=== PATIENT | male | born 1985 | race Caucasian/White ===

== ENCOUNTER 2024-08-25 02:30 | Inpatient (IN) | payer OTHER, SELFPAY ==
[2024-08-24 18:22] VITALS: BMI 31.5
[2024-08-24 18:28] VITALS: BP 152/102
--- NOTE | 2024-08-24 18:29 | ED.GENMED ---
ED Provider Triage
<Natan London PA-C - Last Filed: 08/25/24 15:56>
-
Patient seen by provider in Triage?: Seen in Triage
Attestation: A medical screening examination has been initiated by a qualified medical provider. Based on the assessment performed at this time, it has been determined that an emergent medical condition may exist and the patient has been informed
that further medical evaluation and possible additional diagnostic testing may be needed.
HPI: 39-year-old male presenting to the emergency department for evaluation of right knee pain and swelling that started after bumping his knee onto a desk. Patient with history of sepsis secondary to infection in the spine a few years
ago. Noticed increased pain, swelling and erythema today. Also had a low-grade fever. Patient concern for possible recurring sepsis. States he is still able to range of motion the knee without much difficulty. No known sick contacts. Labs
including inflammatory markers, COVID and flu testing ordered. X-ray of the right knee ordered.
GENERAL: Alert , in no apparent distress
EYE: No visual abnormalities.
NECK: Trachea midline
ENT: No visible abnormalities.
LUNGS: No acute respiratory distress
NEUROLOGICAL: Alert and oriented
SKIN: Skin intact. No visible changes.
MUSCULOSKELETAL: Moving extremities normally
PSYCH: Normal and appropriate interaction.
This is a medical evaluation conducted in person to initiate diagnostic evaluation and provide initial therapeutics. Please see further documentation by the treating clinician.
History of Present Illness
<Natan London PA-C - Last Filed: 08/25/24 15:56>
General
Chief Complaint: Musculo-Skeletal Complaint
Time Seen by Provider: 08/25/24 00:01
Past History
<Natan London PA-C - Last Filed: 08/25/24 15:56>
Past History
ED Past Medical History: Other (septic facet - MSSA- PIC line inserted for antibiotic therapy. Developed DVT at PICC line and line was removed. CUrrently on Eliquis therapy.)
ED Past Surgical History: Appendectomy
Social History
Tobacco: Non-smoker
Alcohol: Occasional
Drug: None
Personal:
Employment: Employed
Family History
Family History: Other (Noncontributory)
<Eliseo Mccormick DO - Last Filed: 08/25/24 00:24>
Past History
ED Past Medical History: Other (septic facet - MSSA- PIC line inserted for antibiotic therapy. )
Social History
Living: with family
Review of Systems
<Eliseo Mccormick DO - Last Filed: 08/25/24 00:24>
Review of Systems
All Other Systems: Not applicable
Constitutional: Reports fever, fatigue and chills
Musculoskeletal: Reports joint pain and edema
Phy Exam
<Eliseo Mccormick DO - Last Filed: 08/25/24 00:24>
Physical Exam
Physical Exam:
Physical Exam
General: 39 male warm to touch
Neck: No jaundice
Heart: No murmur
Lungs: no acute respiratory distress. clear bilaterally
Abdomen: Not
Neuro: alert and oriented. no focal neurological deficits
Skin: no rash
Psychiatric: well kept. interactive and cooperative
Extremities: Swelling over the right prepatellar bursa with warmth good range of motion of the knee
Course
<Natan London PA-C - Last Filed: 08/25/24 15:56>
Orders/Labs/Results
Orders:
Orders
08/24/24 18:27
CR Knee- Right 4 Or More View* Urgent
Comment:
Reason For Exam: injury. fever
08/24/24 18:41
Basic Metabolic Panel Urgent
COVID-19 Antigen Urgent
Source: Nasal Swab
CRP [C-Reactive Protein] Urgent
Complete Blood Count/With Diff Urgent
ESR [Erythrocyte Sed Rate] Urgent
Lactic Acid Q4H
Comment: CANCEL 2nd LACTIC ACID IF 1st LACTIC ACID IS LESS THAN 2
Lyme Progressive Urgent
Influenza A+B Rapid Molecular Urgent
AKIN Source: Nasal Swab
Specimen Description:
08/25/24 00:18
Body Fluid Cell Count Urgent
What is the Body Fluid: joint
Comment: with DIFF
Body Fluid Crystals Urgent
What is the Body Fluid: joint
Body Fluid Glucose Urgent
Fluid Source: Other
Fluid Culture with Gram Stain Urgent
AKIN Source: Joint Fluid
Specimen Description:
Gram Stain Stat
AKIN Source: Joint
Specimen Description:
08/25/24 00:24
CeFAZolin 2 GRAM [Ancef] 2 grams in 10 ml IV NOW
08/25/24 00:56
Blood Culture Q30M
AKIN Source: Blood/Venous
Specimen Description:
08/25/24 00:57
Blood Culture Q30M
AKIN Source: Blood/Venous
Specimen Description:
08/25/24 01:32
Ketorolac [Toradol] 30 mg IV NOW STA
Ondansetron Injectable [Zofran] 4 mg IV NOW STA
08/25/24 02:03
Admit/Transfer Patient As Directed
Co-Sign Provider:
Level of Care: Inpatient admission
Assign to:: Medical/Surgical
Physician / Group: Hussein
Diagnosis: Septic Bursitis - R Knee
Reason for Hospitalization: Septic Bursitis - R Knee
Expected length of stay greater than two midnights?: Yes
ELOS- Estimated Length of Stay in days: 2
I certify the patient meets the requirements for IP care: Yes
PRN Pain Medication Management As Directed
May give lesser potent ordered pain med per pt: Yes
preference::
Protocol:: Medication orders for pain may be administered in a
manner that supports deferring to patient preference
when the pt is:
- Requesting an ordered lesser potent pain medication.
Least to most potent pain medications are defined
as: acetaminophen < NSAID < tramadol < opioids
(morphine, oxycodone, hydromorphone).
- Requesting a lesser dose of the same medication IF
ORDERED.
- Requesting a less intrusive route of administration
if both routes are prescribed by the provider (PO <
IV).
08/25/24 02:04
Code Status As Directed
Resuscitation Status: Full Code
08/25/24 03:19
Acetaminophen [Tylenol] 650 mg PO Q4HPRN PRN
HYDROmorphone [Dilaudid] 0.5 mg IV Q4HPRN PRN
Ketorolac [Toradol] 15 mg IV Q6HPRN PRN
Lactated Ringers [Lr] 1,000 ml IV 125 mls/hr
08/25/24 03:19
ORTHOPEDIC CONSULT Routine
Consulting Provider: Caden Friedman
Was physician already notified: Yes
Reason for consult: Septic Bursitis - R Knee
Activity As Directed
Activity Level: Ambulate
I/O [Intake/ Output] As Directed
Frequency: Per unit guidelines
Vital Signs As Directed
Frequency: Per unit guidelines
DX Deep Vein Thrombosis Video Routine
08/25/24 Breakfast
Regular
At Your Request: Full Participation
Does patient need a safe tray?: No
08/25/24 06:11
Basic Metabolic Panel IN AM
Complete Blood Count/No Diff IN AM
08/25/24 08:00
CeFAZolin 2 GRAM [Ancef] 2 grams in 10 ml IV Q8H
08/25/24 18:00
Enoxaparin Sodium [Lovenox] 40 mg SC QPM
Abnormal Lab Results
08/24/24
18:41
RBC 4.48 L 10^6/uL
(4.70-6.10)
MCH 32.1 H pg
(27.0-31.0)
Absolute Monos (auto) 0.8 H 10^3/uL
(0.1-0.6)
Monocytes % 12.0 H %
(1.7-9.3)
ESR 31 H mm/hour
(0-20)
Sodium 133 L mmol/L
(135-145)
Glucose 144 H mg/dl
(70-99)
C-Reactive Protein 133.20 H mg/L
(0.0-10.00)
08/24/24 18:41
08/24/24 18:41
Vital Signs
Initial and Last Documented VS:
Initial Vital Signs
Temp Pulse Resp BP Pulse Ox
99.9 F 106 20 152/102 96
08/24/24 18:28 08/24/24 18:28 08/24/24 18:28 08/24/24 18:28 08/24/24 18:28
Last Documented Vital Signs
Temp Pulse Resp BP Pulse Ox
97.8 F 70 16 142/81 97
08/25/24 15:45 08/25/24 15:45 08/25/24 15:45 08/25/24 15:45 08/25/24 15:45
<Eliseo Mccormick, DO - Last Filed: 08/25/24 00:24>
Orders/Labs/Results
Orders:
Orders
08/24/24 18:27
CR Knee- Right 4 Or More View* Urgent
Comment:
Reason For Exam: injury. fever
08/24/24 18:41
Basic Metabolic Panel Urgent
COVID-19 Antigen Urgent
Source: Nasal Swab
CRP [C-Reactive Protein] Urgent
Complete Blood Count/With Diff Urgent
ESR [Erythrocyte Sed Rate] Urgent
Lactic Acid Q4H
Comment: CANCEL 2nd LACTIC ACID IF 1st LACTIC ACID IS LESS THAN 2
Lyme Progressive Urgent
Influenza A+B Rapid Molecular Urgent
AKIN Source: Nasal Swab
Specimen Description:
08/25/24 00:18
Body Fluid Cell Count Urgent
What is the Body Fluid: joint
Comment: with DIFF
Body Fluid Crystals Urgent
What is the Body Fluid: joint
Body Fluid Glucose Urgent
Fluid Source: Other
Fluid Culture with Gram Stain Urgent
AKIN Source: Joint Fluid
Specimen Description:
Gram Stain Stat
AKIN Source: Joint
Specimen Description:
08/25/24 00:24
CeFAZolin 2 GRAM [Ancef] 2 grams in 10 ml IV NOW
08/25/24 00:56
Blood Culture Q30M
AKIN Source: Blood/Venous
Specimen Description:
08/25/24 00:57
Blood Culture Q30M
AKIN Source: Blood/Venous
Specimen Description:
08/25/24 01:32
Ketorolac [Toradol] 30 mg IV NOW STA
Ondansetron Injectable [Zofran] 4 mg IV NOW STA
08/25/24 02:03
Admit/Transfer Patient As Directed
Co-Sign Provider:
Level of Care: Inpatient admission
Assign to:: Medical/Surgical
Physician / Group: Hussein
Diagnosis: Septic Bursitis - R Knee
Reason for Hospitalization: Septic Bursitis - R Knee
Expected length of stay greater than two midnights?: Yes
ELOS- Estimated Length of Stay in days: 2
I certify the patient meets the requirements for IP care: Yes
PRN Pain Medication Management As Directed
May give lesser potent ordered pain med per pt: Yes
preference::
Protocol:: Medication orders for pain may be administered in a
manner that supports deferring to patient preference
when the pt is:
- Requesting an ordered lesser potent pain medication.
Least to most potent pain medications are defined
as: acetaminophen < NSAID < tramadol < opioids
(morphine, oxycodone, hydromorphone).
- Requesting a lesser dose of the same medication IF
ORDERED.
- Requesting a less intrusive route of administration
if both routes are prescribed by the provider (PO <
IV).
08/25/24 02:04
Code Status As Directed
Resuscitation Status: Full Code
08/25/24 03:19
Acetaminophen [Tylenol] 650 mg PO Q4HPRN PRN
HYDROmorphone [Dilaudid] 0.5 mg IV Q4HPRN PRN
Ketorolac [Toradol] 15 mg IV Q6HPRN PRN
Lactated Ringers [Lr] 1,000 ml IV 125 mls/hr
08/25/24 03:19
ORTHOPEDIC CONSULT Routine
Consulting Provider: Caden Friedman
Was physician already notified: Yes
Reason for consult: Septic Bursitis - R Knee
Activity As Directed
Activity Level: Ambulate
I/O [Intake/ Output] As Directed
Frequency: Per unit guidelines
Vital Signs As Directed
Frequency: Per unit guidelines
DX Deep Vein Thrombosis Video Routine
08/25/24 Breakfast
Regular
At Your Request: Full Participation
Does patient need a safe tray?: No
08/25/24 06:11
Basic Metabolic Panel IN AM
Complete Blood Count/No Diff IN AM
08/25/24 08:00
CeFAZolin 2 GRAM [Ancef] 2 grams in 10 ml IV Q8H
08/25/24 18:00
Enoxaparin Sodium [Lovenox] 40 mg SC QPM
Abnormal Lab Results
08/24/24
18:41
RBC 4.48 L 10^6/uL
(4.70-6.10)
MCH 32.1 H pg
(27.0-31.0)
Absolute Monos (auto) 0.8 H 10^3/uL
(0.1-0.6)
Monocytes % 12.0 H %
(1.7-9.3)
ESR 31 H mm/hour
(0-20)
Sodium 133 L mmol/L
(135-145)
Glucose 144 H mg/dl
(70-99)
C-Reactive Protein 133.20 H mg/L
(0.0-10.00)
08/24/24 18:41
08/24/24 18:41
Vital Signs
Initial and Last Documented VS:
Initial Vital Signs
Temp Pulse Resp BP Pulse Ox
99.9 F 106 20 152/102 96
08/24/24 18:28 08/24/24 18:28 08/24/24 18:28 08/24/24 18:28 08/24/24 18:28
Last Documented Vital Signs
Temp Pulse Resp BP Pulse Ox
97.8 F 70 16 142/81 97
08/25/24 15:45 08/25/24 15:45 08/25/24 15:45 08/25/24 15:45 08/25/24 15:45
<Eliseo Mccormick DO - Last Filed: 08/25/24 00:24>
*Radiology
Radiology exam reviewed: preliminary read by ED provider
*Pulse Oximetry
Patient hypoxic: no
*Critical Care Note
Total Time (30-74mins, 75-104mins- exclusive of procedures): Not Applicable
<Eliseo Mccormick DO - Last Filed: 08/25/24 00:24>
Update Note
Update Note:
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
ED Attending Note
<Natan London PA-C - Last Filed: 08/25/24 15:56>
-
Portions of this chart may have been created with voice recognition software.� Occasional wrong word or��sound alike� substitutions may have occurred due to the inherent limitations of voice recognition software.
Discharge Plan
Departure
Patient Disposition: Admit
Date of Disposition: 08/25/24
Time of Disposition: 00:23
Admit to: Med/Surg
Presentation/result/management discussed w/ accepting MD/DO: Hospitalist
Patient with high blood pressure during this ER visit?: No
Condition: Fair
Discharge Problem:
Septic prepatellar bursitis
Interventions
Interventions:
*Risk Screen - Suicide Last Done: 08/24/24 18:28
*General Assessment Last Done: 08/25/24 01:26
*Neglect/Abuse Screening Last Done: 08/25/24 07:18
ED- Fall Risk Assessment Last Done: 08/25/24 07:18
*ED COVID-19 Vaccine History Last Done: 08/25/24 01:26
*Nursing Disposition Last Done: 08/25/24 14:38
ED-Musculoskeletal Assessment Last Done: 08/25/24 01:14
Discharge Date and Time
Discharge Date/Time: 08/25/24 14:38
[2024-08-24 18:50] LABS: % Basophils 1.3 % (0-2); % Immature Granulocytes 0.1 % (0-0.5); % Neutrophils 60.6 % (42.2-75.2); Absolute Basophils 0.1 10^3/uL (0-0.2); Absolute Eosinophils 0.1 10^3/uL (0-0.7); Absolute Lymphocytes 1.8 10^3/uL (1.2-3.4); Absolute Monocytes 0.8 10^3/uL (0.1-0.6); Absolute Neutrophils 4.2 10^3/uL (1.4-6.5); Hematocrit 39.2 % (39.0-52.0); Hemoglobin 14.4 g/dL (13.0-18.0); Mean Corp Hgb Conc. 36.7 g/dL (33.0-37.0); Mean Corpuscular Hgb 32.1 pg (27.0-31.0); Mean Corpuscular Volume 87.5 fL (80.0-94.0); Nucleated Red Blood Cells % 0 % (-); Platelet Count 179 10^3/uL (130-400); Red Blood Cell Count 4.48 10^6/uL (4.70-6.10); Red Cell Dist. Width 11.9 % (11.5-14.5)
[2024-08-24 19:00] LABS: Lactic Acid 0.9 mmol/L (0.7-2.0)
[2024-08-24 19:09] LABS: Blood Urea Nitrogen 12 mg/dl (9-20); Calcium 8.5 mg/dl (8.4-10.2); Carbon Dioxide 27 mmol/L (22-30); Chloride 98 mmol/L (98-107); Glucose 144 mg/dl (70-99); Potassium 3.8 mmol/L (3.5-5.1); Sodium 133 mmol/L (135-145); eGFR > 60.00
[2024-08-24 19:11] LABS: Erythrocyte Sed Rate 31 mm/hour (0-20)
[2024-08-24 19:26] LABS: COVID-19 Antigen Negative (Negative)
[2024-08-25] VITALS (14 sets, daily range): BP systolic 119–144; BP diastolic 78–97
[2024-08-25] MEDS: ANCEF 10 IV ×3 (00:55→15:42)
[2024-08-25] MEDS: ZOFRAN 4 MG IV (01:43)
[2024-08-25] MEDS: TORADOL 30 MG IV (01:45)
--- NOTE | 2024-08-25 02:06 | HPS.HSE ---
Family Physician
-
Family Physician: Jocelnyn Rivero
Chief Complaint
-
R Knee Pain / Swelling / Redness
History of Present Illness
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 Patient states that he initially bumped his knee on a desk
at work on of last week. He noted progressive pain and swelling of the R knee since that time. He was seen at Urgent Care yesterday and diagnosed with inflammatory bursitis - no Rx given. Today his entire leg below the knee swelled up
significantly while at work. The knee continued to appear red and warm.
He was seen by [facility] at work and started on Bactrim DS - has taken two doses thus far. This evening he had continued worsening of symptoms and presented to the ED for further evaluation.
Medical History
Past Medical History
Past Medical History: Reports Other
Additional Past Medical History:
MSSA Lumbar Facet Arthritis (2019)
Past Surgical History: Reports Other
Additional Past Surgical History:
Appendectomy
Social History
Tobacco: Non-smoker
Alcohol: Occasional
Drug: None
Family History
Family History: Not pertinent
Allergies / Home Medications
Allergies reflects when Allergies were last updated in [facility].
Home Medications with original date entered in [facility]
Allergy/Medication List:
Allergies
Allergy/AdvReac Type Severity Reaction Status Date / Time
No Known Allergies Allergy Verified 08/24/24 18:28
Home Medications
sulfamethoxazole 800 mg-trimethoprim 160 mg tablet (Bactrim DS) 1 tab PO BID 08/25/24
Review of Systems
-
History Source: Patient
A 12 point ROS was completed and negative except as noted: Yes
Constitutional: Reports Chills; Denies Fever or Fatigue
Respiratory: Denies Cough or Trouble Breathing
Cardiac: Denies Chest Pain or Palpitations
Abdomen/GI: Denies Abdominal Pain, Nausea, Vomiting or Diarrhea
: Denies Dysuria, Frequency or Flank Pain
Musculoskeletal: Reports Joint Pain, Joint Swelling and Edema
Neurological: Denies Dizzy or Headache
Physical Exam
Vital Signs
Vital Signs
Temp Pulse Resp BP Pulse Ox
99.9 F 106 20 135/85 92
08/24/24 18:28 08/24/24 18:28 08/24/24 18:28 08/25/24 01:07 08/25/24 01:15
Physical Exam
General: Other (39y M in no acute distress.)
HEENT: Moist mucous membranes and PERRLA
Respiratory: Clear; No Wheezes, Rales or Rhonchi
Cardiac: S1/S2 and Regular Rhythm; No Murmur
GI: Soft, Non Tender, Non Distended and Normal Bowel Sounds
Musculoskeletal: No Clubbing, No Cyanosis and Other (R knee with localized edema and focal tenderness. Erythema and increased warmth over the knee and extending distally into the lower leg.)
Neuro: AO x 3
Laboratory Results
-
08/24/24 18:41
08/24/24 18:41
Laboratory Results
Lactic Acid Cancelled 08/24/24 22:30
Impression/Plan
-
A/P: Patient is a 39y M with PMH significant for MSSA lumbar facet arthritis with bacteremia who presents to ED complaining of pain, swelling and redness of the R knee x several days.
Septic Bursitis - Right Knee
Cellulitis associated with the above
- Admit for further evaluation and treatment.
- Attempted aspiration in the ED without significant fluid obtained for analysis / cultures.
- IV abx. Supportive care including pain control / NSAIDs / etc.
- Follow for clinical improvement.
- Follow-up blood culture data.
- Ortho evaluation for additional recommendations - has seen Bari in the past.
DVT Prophylaxis: Subcut Heparin
Code Status: Full
[2024-08-25] MEDS: LR 1000 IV ×3 (03:54→20:43)
[2024-08-25 06:29] LABS: Hematocrit 37.8 % (39.0-52.0); Hemoglobin 13.5 g/dL (13.0-18.0); Mean Corp Hgb Conc. 35.7 g/dL (33.0-37.0); Mean Corpuscular Hgb 31.9 pg (27.0-31.0); Mean Corpuscular Volume 89.4 fL (80.0-94.0); Mean Platelet Volume 9.3 fL (7.4-10.4); Platelet Count 170 10^3/uL (130-400); Red Blood Cell Count 4.23 10^6/uL (4.70-6.10); Red Cell Dist. Width 12.2 % (11.5-14.5); White Blood Cell Count 6.2 10^3/uL (4.8-10.8)
[2024-08-25 06:59] LABS: Blood Urea Nitrogen 11 mg/dl (9-20); Calcium 8.4 mg/dl (8.4-10.2); Carbon Dioxide 28 mmol/L (22-30); Chloride 100 mmol/L (98-107); Estimated Creatinine Clearance > 125 ml/min; Glucose 89 mg/dl (70-99); Potassium 4.2 mmol/L (3.5-5.1); Sodium 136 mmol/L (135-145); eGFR > 60.00
--- NOTE | 2024-08-25 07:55 | W.PN.HOSP.TC ---
Today's Communication/Plan
-
Continue IV antibiotics, follow cultures
Assessment / Plan
Assessment / Plan
Physical Exam
General: Other (39y M in no acute distress.)
HEENT: Moist mucous membranes
Respiratory: Clear
Cardiac: S1/S2 and Regular Rhythm
GI: Soft, Non Tender, Non Distended and Normal Bowel Sounds
Musculoskeletal: No Cyanosis and Other (R knee with localized edema and focal tenderness. Erythema and increased warmth over the knee and extending distally into the lower leg.)
Neuro: AAO x 3
Assessment/Plan
Patient is a 39 y/o male with PMH significant for MSSA lumbar facet arthritis with bacteremia who presents to ED complaining of pain, swelling and redness of the R knee x several days.
Septic Bursitis - Right Knee
Cellulitis associated with the above
History of MSSA Bacteremia
- Aspiration attempted in the ED without significant fluid obtained for analysis / cultures.
- IV abx. Supportive care including pain control / NSAIDs / etc.
- Follow for clinical improvement.
- Follow-up blood culture data.
- Ortho evaluation for additional recommendations - has seen Bari in the past.
DVT Prophylaxis: Subcut Heparin
Code Status: Full
This is a non-billable note.
Anticipated Discharge: 24 - 48 hours
Subjective/Interval History
-
Date of Service: August 25, 2024
Patient was seen and examined. He reported that his skin redness may be getting a bit better. Denied any new complaints.
Objective Data
-
Labs:
Laboratory Results
08/25/24
06:11
WBC 6.2
Hgb 13.5
Hct 37.8 L
Plt Count 170
Sodium 136
Potassium 4.2
Chloride 100
Carbon Dioxide 28
BUN 11
Creatinine 0.9
Glucose 89
Calcium 8.4
Vital Signs:
Vital Signs
Temp Pulse Resp BP Pulse Ox
99.9 F 106 20 119/84 98
08/24/24 18:28 08/24/24 18:28 08/24/24 18:28 08/25/24 06:00 08/25/24 06:30
[2024-08-25 11:06] LABS: Lyme Antibody Screen, EIA Negative (Negative)
[2024-08-25] MEDS: LOVENOX 40 MG SC (17:21)
[2024-08-26] MEDS: ANCEF 10 IV ×4 (00:13→23:11)
[2024-08-26 08:20] VITALS: BP 122/73
[2024-08-26 08:33] LABS: % Basophils 0.9 % (0-2); % Eosinophils 3.1 % (0-6); % Immature Granulocytes 0.3 % (0-0.5); % Lymphocytes 19.2 % (20.5-51.1); % Monocytes 13.4 % (1.7-9.3); % Neutrophils 63.1 % (42.2-75.2); Absolute Basophils 0.1 10^3/uL (0-0.2); Absolute Eosinophils 0.2 10^3/uL (0-0.7); Absolute Lymphocytes 1.2 10^3/uL (1.2-3.4); Absolute Monocytes 0.9 10^3/uL (0.1-0.6); Hematocrit 40.4 % (39.0-52.0); Mean Corp Hgb Conc. 34.7 g/dL (33.0-37.0); Mean Corpuscular Hgb 31.2 pg (27.0-31.0); Mean Platelet Volume 9.3 fL (7.4-10.4); Nucleated Red Blood Cells % 0 % (-); Platelet Count 185 10^3/uL (130-400); Red Blood Cell Count 4.49 10^6/uL (4.70-6.10); Red Cell Dist. Width 12.2 % (11.5-14.5); White Blood Cell Count 6.4 10^3/uL (4.8-10.8)
--- NOTE | 2024-08-26 09:38 | W.PN.HOSP.TC ---
Today's Communication/Plan
-
Improving -- continue IV Abx Ancef for another 24 hours (as per ortho recommendations), plan to discharge tomorrow with Cephalexin
Assessment / Plan
Assessment / Plan
Physical Exam
General: Other (39y M in no acute distress.)
HEENT: Moist mucous membranes
Respiratory: Clear
Cardiac: S1/S2 and Regular Rhythm
GI: Soft, Non Tender, Non Distended and Normal Bowel Sounds
Musculoskeletal: No Cyanosis and Other (R knee with localized edema and focal tenderness. Erythema and increased warmth over the knee and extending distally into the lower leg.)
Neuro: AAO x 3
Assessment/Plan
Patient is a 39 y/o male with PMH significant for MSSA lumbar facet arthritis with bacteremia who presents to ED complaining of pain, swelling and redness of the R knee x several days.
Septic Bursitis - Right Knee
Cellulitis associated with the above
History of MSSA Bacteremia
- Aspiration attempted in the ED without significant fluid obtained for analysis / cultures.
- Responded well to Cefazolin -- continue for another 24 hours of IV antibiotics as per orthopedics
- At the time of discharge, transition to Cephalexin 500 mg QID for another 8 days (34 doses of 500 mg)
- Supportive care including pain control / NSAIDs / etc.
- Follow for clinical improvement.
- Blood culture with no growth to date
- Ortho evaluation for additional recommendations - has seen B[facility] in the past.
DVT Prophylaxis: Subcut Heparin
Code Status: Full
Anticipated Discharge: Within 24 hours
Subjective/Interval History
-
Date of Service: August 26, 2024
Patient was seen and examined. He reported that his knee was much better. He denied any other new symptoms or complaints.
Objective Data
-
Labs:
Laboratory Results
08/26/24
08:11
WBC 6.4
Hgb 14.0
Hct 40.4
Plt Count 185
Vital Signs:
Vital Signs
Temp Pulse Resp BP Pulse Ox
99.0 F 75 16 122/73 97
08/26/24 08:20 08/26/24 08:20 08/26/24 08:20 08/26/24 08:20 08/26/24 08:20
I&O
08/25/24 08/26/24 08/27/24
06:59 06:59 06:59
Intake Total 2084 / 2084
Output Total 600 / 600
Balance 1485 / 1485
--- NOTE | 2024-08-26 11:52 | CM ---
Patient seen bedside with spouse in room.
Patient lives with spouse and kids in a 2 story home with 1 step to enter.
No assistive devices.
Patient has had [facility] in the past for IV anbx and agreeable to them again if needed.
Patient independent prior to admission, works and drives.
PCP: Dr Rivero
Pharmacy: [facility]
Plan: home with possible VN/IV anbx needs, continue to follow.
--- NOTE | 2024-08-26 12:24 | CON.ORTHO ---
Consultation
-
Date/Time Consultation Requested: Aug 22
Date/Time Consultation Performed: Aug 22
Requesting Provider: Tonya
Performing Provider: Jesus Newell
Reason for Consultation: Right septic prepatellar bursitis
Consultation - Orthopedics
History
History of Present Illness
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 Patient states that
he initially bumped his knee on a desk at work on of last week. He noted progressive pain and swelling of the right knee since that time. He was seen at Urgent Care yesterday and diagnosed with inflammatory bursitis - no Rx given. Today
his entire leg below the knee swelled up significantly while at work. The knee continued to appear red and warm. He was seen by [facility] at work and started on Bactrim DS - had taken two doses prior to ED presentation. Last evening he had continued
worsening of symptoms and presented to the ED for further evaluation. we have been requesting a consultation with regards to his right knee. Patient reports significant improvement in his symptoms since starting IV ABX (Ancef)
Past Medical History
MSSA Lumbar Facet Arthritis (2018)
Past Surgical History
Appendectomy
Social History
Tobacco: Non-smoker
Alcohol: Occasional
Drug: None
Family History
Family History: Not pertinent
ROS
12 point negative except for those mentioned in the HPI
Allergies / Home Medications
Allergy/AdvReac Type Severity Reaction Status Date / Time
No Known Allergies Allergy Verified 08/24/24 18:28
�Medication �Instructions �Recorded
sulfamethoxazole 800 1 tab PO BID 08/25/24
mg-trimethoprim 160 mg tablet
(Bactrim DS)
Vital Signs / Lab Results
Temp Pulse Resp BP Pulse Ox
99.0 F 75 16 122/73 97
08/26/24 08:20 08/26/24 08:20 08/26/24 08:20 08/26/24 08:20 08/26/24 08:20
08/26/24 08:11
08/25/24 06:11
Assessment / Plan
PE: Afeb. WBC WNL. In bed 1147. at beside. focused exam of the right knee reveals faint erythema anteriorly and no (resolved) erythema noted down the leg. Band-Aid over the anterolateral aspect from (unsuccessful) attempted aspiration of the
bursa. small abrasion noted. Not much fluctuance to the bursa. no pain to palpation. No intra-articular effusion. Full pain-free range of motion of the knee. No collateral instability. calf soft and nontender. DNVI RLE.
Xrays: Extremely well-preserved joint spaces. Soft tissue swelling noted in the prepatellar region. no acute abnormalities
Impression: (Resolving) septic prepatellar bursitis
Plan: I discussed at length with both the patient and his . He does not have much fluctuance to the bursa at all. Currently I see no surgical indication. Previous attempted aspiration of the bursa was unsuccessful. This may be due to
thickened bursal tissue, not so much fluid. I did not feel that strongly about a repeat aspiration attempt. I am not concerned for an intra-articular issue whatsoever. Seems to be responding very well to IV Ancef. Discussed with attending
hospitalist, Dr. Castaneda. Given response to treatment would recommend another 24-48 hours of IV ABX followed by discharge on orals. The patient did inquire about returning to modified light duty work by the weekend. I think that is reasonable.
Obviously if his clinical picture turns we can be reengaged, however I will sign off for now with a recommended follow-up outpatient in 1 week
[2024-08-26 14:25] VITALS: BP 125/88; PULSE 87; O2SAT 97
[2024-08-26 15:00] VITALS: BP 138/72
[2024-08-26] MEDS: LOVENOX 40 MG SC (16:47)
[2024-08-26] MEDS: LR 1000 IV (16:48)
[2024-08-26 23:10] VITALS: BP 126/82
[2024-08-27 07:25] VITALS: BP 109/74
[2024-08-27 08:44] LABS: % Basophils 1.2 % (0-2); % Eosinophils 3.5 % (0-6); % Immature Granulocytes 0.5 % (0-0.5); % Lymphocytes 22.6 % (20.5-51.1); % Monocytes 15.5 % (1.7-9.3); % Neutrophils 56.7 % (42.2-75.2); Absolute Basophils 0.1 10^3/uL (0-0.2); Absolute Eosinophils 0.2 10^3/uL (0-0.7); Absolute Lymphocytes 1.3 10^3/uL (1.2-3.4); Absolute Monocytes 0.9 10^3/uL (0.1-0.6); Absolute Neutrophils 3.4 10^3/uL (1.4-6.5); Hematocrit 41.9 % (39.0-52.0); Hemoglobin 14.6 g/dL (13.0-18.0); Mean Corp Hgb Conc. 34.8 g/dL (33.0-37.0); Mean Corpuscular Hgb 31.5 pg (27.0-31.0); Mean Corpuscular Volume 90.3 fL (80.0-94.0); Mean Platelet Volume 9.1 fL (7.4-10.4); Nucleated Red Blood Cells % 0 % (-); Platelet Count 228 10^3/uL (130-400); Red Blood Cell Count 4.64 10^6/uL (4.70-6.10); Red Cell Dist. Width 12.1 % (11.5-14.5); White Blood Cell Count 5.9 10^3/uL (4.8-10.8)
[2024-08-27] MEDS: ANCEF 10 IV (09:39)
--- NOTE | 2024-08-27 10:55 | W.PN.HOSP.TC ---
Today's Communication/Plan
-
Discharge today
Assessment / Plan
Assessment / Plan
Physical Exam
General: Other (39y M in no acute distress.)
HEENT: Moist mucous membranes
Respiratory: Clear
Cardiac: S1/S2 and Regular Rhythm
GI: Soft, Non Tender, Non Distended and Normal Bowel Sounds
Musculoskeletal: No Cyanosis and Other (R knee with localized edema and focal tenderness. Erythema and increased warmth over the knee and extending distally into the lower leg -- IMPROVED SIGNIFICANTLY
Neuro: AAO x 3
Assessment/Plan
Patient is a 39 y/o male with PMH significant for MSSA lumbar facet arthritis with bacteremia who presents to ED complaining of pain, swelling and redness of the R knee x several days.
Septic Bursitis - Right Knee
Cellulitis associated with the above
History of MSSA Bacteremia
- Aspiration attempted in the ED without significant fluid obtained for analysis / cultures.
- Responded well to Cefazolin -- continue for another 24 hours of IV antibiotics as per orthopedics
- At the time of discharge, transition to Cephalexin 500 mg QID for another 8 days (32 doses of 500 mg)
- Supportive care including pain control / NSAIDs / etc.
- Follow for clinical improvement.
- Blood culture with no growth to date
- Ortho evaluation for additional recommendations
- Follow-up with Dr. Newell's orthopedics office in 1 week
DVT Prophylaxis: Subcut Heparin
Code Status: Full Code
More than 30 minutes spent in discharge including
Final examination of the patient
Summarizing hospital stay
Instructions for continuing care to all relevant caregivers
Preparation of discharge records, prescriptions, and referral forms
Total time spent (in minutes): 38
Anticipated Discharge: Today
Subjective/Interval History
-
Date of Service: August 27, 2024
Patient was seen and examined. He reported that his knee symptoms are better and that he is happy to go home today.
Objective Data
-
Labs:
Laboratory Results
08/27/24
07:29
WBC 5.9
Hgb 14.6
Hct 41.9
Plt Count 228 D
Vital Signs:
Vital Signs
Temp Pulse Resp BP Pulse Ox
98.2 F 66 16 109/74 97
08/27/24 07:25 08/27/24 07:25 08/27/24 07:25 08/27/24 07:25 08/27/24 07:25
I&O
08/26/24 08/27/24 08/28/24
06:59 06:59 06:59
Intake Total 2085 / 2085 480 / 480
Output Total 600 / 600
Balance 1485 / 1485 480 / 480
--- NOTE | 2024-08-27 11:31 | PTCARENOTE ---
pt aaox3. states no pain in right knee. r knee slightly red small amt of swelling noted. pt states it looks much better.
[2024-08-27 14:08] VITALS: BP 188/78
== END 2024-08-27 14:07 | disposition home or self-care (01) | DRG 558 ==
LOC: 1 ACUTE 02:30
PROVIDERS: Physician Assistant Medical; ADMITTING PHYSICIAN Hospitalist; ATTENDING PHYSICIAN Hospitalist; CONSULT PHYSICIAN Orthopaedic Surgery; EMERGENCY PHYSICIAN Emergency Medicine; FAMILY PHYSICIAN Physician Assistant
DX: M71.161 Other infective bursitis, right knee (principal); L03.115 Cellulitis of right lower limb; Z11.52 Encounter for screening for COVID-19
CPT/HCPCS: 73564; 80048; 83605; 85025; 85027; 85652; 86140; 86618; 87040; 87070; 87502; 87811; 96374; 96375; 97161; 99285

== ENCOUNTER 2025-04-29 00:24 | Emergency (ER) | payer OTHER, SELFPAY ==
[2025-04-29 00:25] VITALS: BP 220/126
[2025-04-29 00:49] LABS: Hematocrit 43.8 % (39.0-52.0); Hemoglobin 15.7 g/dL (13.0-18.0); Mean Corp Hgb Conc. 35.8 g/dL (33.0-37.0); Mean Corpuscular Volume 86.1 fL (80.0-94.0); Platelet Count 241 10^3/uL (130-400); Red Cell Dist. Width 11.9 % (11.5-14.5)
[2025-04-29 01:02] LABS: Blood Urea Nitrogen 17 mg/dl (9-20); Calcium 9.5 mg/dl (8.4-10.2); Carbon Dioxide 26 mmol/L (22-30); Chloride 104 mmol/L (98-107); Glucose 109 mg/dl (70-99); Potassium 3.8 mmol/L (3.5-5.1); Sodium 139 mmol/L (135-145); eGFR > 60.00
[2025-04-29 02:25] VITALS: BMI 31.7
[2025-04-29 02:42] VITALS: BP 150/97
[2025-04-29 02:53] LABS: Urine Character Clear (Clear)
--- NOTE | 2025-04-29 03:47 | ED.GENMED ---
History of Present Illness
General
Chief Complaint: Abdominal Symptoms
Source: patient, spouse and previous hospital records
Exam Limitations: none
Time Seen by Provider: 04/29/25 02:54
Nursing documentation reviewed up to this point in time: agreed with
History of Present Illness
History of Present Illness:
This is a 40-year-old male who presents with complaints of numbness and tingling on the right lateral leg that started around midnight, waking him from sleep. The patient reports that this sensation began from the small toe and extended upwards
along the lateral right leg and then eventually involved the ulnar aspect of his right upper arm. He believes he awoke around midnight, he believes he was lying on his back. He states 'I woke up because I was feeling a very weird sensation in my
leg' suggesting that the discomfort interrupted his sleep. Upon standing the patient experienced some nausea as well as diaphoresis. He was able to walk around without difficulty, no weakness nor stumbling, no dizziness or lightheadedness. He
admits to diaphoresis with attempting to vomit and admits to feeling anxious and believes he developed a panic attack and route to the hospital with some lightheadedness and dizziness. He was concern for possibility of a stroke. He is not have a
headache nor neck pain, no back pain. Symptoms have resolved since arrival to the ED without return.
No history of similar episodes in the past.
Was feeling well prior to going to bed. He does admit to some bilateral leg cramping yesterday while at work. He admits to significant walking while at work but denies lifting nor working outdoors.
He has prior history of septic facet arthritis of the lumbar spine 2018. MSSA. No definitive source. Most recently hospitalized July 2024 with septic bursitis of knee. No recurrent episodes.
He takes no medicines on a daily basis.
Noted to be moderately hypertensive upon arrival to the ED, blood pressure improved since arrival.
Currently feeling well, asymptomatic. Complete resolution of symptoms.
Past History
Past History
ED Past Medical History: Other (septic lumbar facet - MSSA-2018. Septic bursitis right knee July 2024)
ED Past Surgical History: Appendectomy
Social History
Tobacco: Non-smoker
Alcohol: Occasional
Drug: None
Personal:
Living: with family
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
Family History
Family History: Other (Noncontributory)
Phy Exam
Physical Exam
Physical Exam:
GENERAL: Alert , in no apparent distress
EYE: pupils equal and reactive. anicteric
NECK: Supple, nontender, no meningismus, no significant adenopathy.
ENT: oral mucosa is moist. No rhinorrhea.
CARDIAC: Regular rate and rhythm. no murmur.
LUNGS: Clear breath sounds bilaterally, no acute respiratory distress, no wheezes/rales/rhonchi
ABDOMEN: Soft, nondistended, without focal tenderness, no r/g, no cvat. normoactive BS.
NEUROLOGICAL: Alert and oriented x3, no focal neuro deficits. Motor strength is 5/5 bilaterally. Gross sensation is intact. No dysmetria. Gait is beatty and steady.
SKIN: Warm and dry, normal color, skin intact. No rash.
MUSCULOSKELETAL: No C/C/E. peripheral pulses are full and equal b/l. No palpable tenderness.
PSYCH: Normal and appropriate interaction.
Course
Orders/Labs/Results
Orders:
Orders
04/29/25 00:29
Electrocardiogram (*1) Urgent
Reason for Study: Tachycardia
EKG- Treatment ONCE
04/29/25 00:33
BMP [Basic Metabolic Panel] Urgent
Complete Blood Count/No Diff Urgent
Creatine Phosphokinase Urgent
Free T4 Urgent
TSH Reflex To Free T4 Urgent
04/29/25 02:44
Urinalysis Reflex To Culture Urgent
Date Specimen was Collected: 04/29/25
Time Specimen was Collected: 02:37
04/29/25 03:41
Add On- LAB Urgent
Tests Added?: TSH reflex to free T-4; CPK
04/29/25 03:43
CT Head W/o Iv Contrast Urgent
Comment:
Reason For Exam: acute R sided paresthesia/numbness
Abnormal Lab Results
04/29/25
00:33
Glucose 109 H mg/dl
(70-99)
Creatine Kinase 1139 H U/L
(55-170)
TSH (Reflex) 4.75 H uIU/ml
(0.47-4.68)
04/29/25 00:33
04/29/25 00:33
Vital Signs
Initial and Last Documented VS:
Initial Vital Signs
Temp Pulse Resp BP Pulse Ox
97.8 F 116 22 220/126 98
04/29/25 00:25 04/29/25 00:25 04/29/25 00:25 04/29/25 00:25 04/29/25 00:25
Last Documented Vital Signs
Temp Pulse Resp BP Pulse Ox
97.8 F 71 16 154/98 99
04/29/25 00:25 04/29/25 05:27 04/29/25 05:27 04/29/25 05:27 04/29/25 05:27
MDM/Problems Addressed
Differential Diagnosis Includes:
The differential diagnosis includes, in no particular order and is not limited to:
Peripheral neuropathy
TIA
Panic attack with somatic symptoms
Dehydration or electrolyte imbalance
Musculoskeletal strain or muscle fatigue
Thyroid disorder
Radiculopathy
Sleep related position induced paresthesia
MDM/Problems Addressed:
Acute numbness and tingling in the right leg and arm.
Nausea and diaphoresis
Panic attack symptoms
Thus far labs are unremarkable. Normal electrolytes and CBC. Urinalysis is unremarkable and with lack of back pain/flank pain, ureteric stone/renal colic is unlikely.
EKG is unremarkable, unchanged from previous.
Will add thyroid function as well as CPK to blood in the lab.
Will check CT of the head.
Will continue to monitor for return of symptoms.
Chronic conditions affecting care:
Markedly elevated blood pressure and patient has had similarly sporadically elevated blood pressures on previous visits.
Remote history of septic facet arthritis as well as prepatellar bursitis. On both of those visits patient presented with pain and fever. He remains afebrile, denies pain.
*Radiology
Radiology exam reviewed: radiology read reviewed
*Pulse Oximetry
SaO2: 97
Oxygen Mode of Delivery: Room air
Patient hypoxic: no
*EKG
Interpreted by ED Provider?: Yes
Interpretation: normal
Comparison EKG: no changes
Rate: normal
Rhythm: sinus
[place]: normal axis
Interval: normal interval
QRS Pattern: normal QRS
Ischemia: no ischemia
*Critical Care Note
Total Time (30-74mins, 75-104mins- exclusive of procedures): Not Applicable
Update Note
Update Note:
05:45
Patient remains asymptomatic. Comfortable, no return of paresthesia. No muscle pain.
CT of the head is unremarkable.
Mildly elevated systolic blood pressure 150. He remains afebrile. Without tachycardia.
TSH is very minimally elevated with normal free T4.
CPK moderately elevated at 1100. Concerning for an element of mild rhabdomyolysis. He continues to deny muscle pain but was complaining of some generalized muscle aches yesterday. He also admits to remaining fairly physically active on a daily
basis.
Reassuring urinalysis, within normal limits and reassuring/normal creatinine.
Discussed importance of remaining well-hydrated on a daily basis. Avoid strenuous physical activity.
Prompt follow-up with PCP for recheck.
Return precautions discussed.
ED Attending Note
-
Portions of this chart may have been created with voice recognition software.� Occasional wrong word or��sound alike� substitutions may have occurred due to the inherent limitations of voice recognition software.
Discharge Plan
Departure
Patient Disposition: Home (Routine Discharge)
Date of Disposition: 04/29/25
Time of Disposition: 05:48
Patient with high blood pressure during this ER visit?: Yes
Condition: Good
Discharge Problem:
Paresthesia of right arm and leg, Elevated CPK
Instructions: Rhabdomyolysis, Peripheral neuropathy, BLOOD PRESSURE
Prescriptions:
No Action
No Current Medications
0
Referrals:
Jocelynn Rivero PA-C [Family Provider, Internal Medicine] - Call in 1-3 days for appt
Interventions
Interventions:
*Risk Screen - Suicide Last Done: 04/29/25 00:25
*General Assessment Last Done: 04/29/25 02:19
*Neglect/Abuse Screening Last Done: 04/29/25 00:25
*ED- Fall Risk Assessment Last Done: 04/29/25 02:19
*ED COVID-19 Vaccine History Last Done: 04/29/25 02:19
*ED Influenza Vaccine History Last Done: 04/29/25 02:19
[facility] Assessment Last Done: 04/29/25 02:25
Discharge Date and Time
Print Language: ITALIAN
[2025-04-29 05:27] VITALS: BP 154/98
[2025-04-29 06:01] VITALS: BP 146/99
== END 2025-04-29 06:04 | disposition home or self-care (01) ==
LOC: EMR 00:24
PROVIDERS: Emergency Medicine; EMERGENCY PHYSICIAN Emergency Medicine; FAMILY PHYSICIAN Physician Assistant
DX: R20.2 Paresthesia of skin (principal); R74.8 Abnormal levels of other serum enzymes; Z90.49 Acquired absence of other specified parts of digestive tract
CPT/HCPCS: 99284; 70450; 80048; 81003; 82550; 84439; 84443; 85027; 93005